=== PATIENT | male | born 1950 | race Caucasian/White ===

== ENCOUNTER → 2016-09-22 | Outpatient (CLI) | payer BC ==
[~2016-09-22] MED LIST: ADVIN25/60 INH; ALPHTAB4 PO; ALUMSUS2 PO; AMLO-114 PO; ASCO500T16 PO; ASPCH81X PO; ATOR-26 PO; CHOL100027 PO; CYAN500T PO; DABI150C PO; DICL1GEL12 EXT; FLUO40CA8 PO; GLUC10007 PO; IPRA1AER2 INH; IRBE1TAB50 PO; MCRK20 PO; METO25TA3 PO; MONT1TAB3 PO; MULT1TAB56 PO; NTRSLP4 SL; OMEG10007 PO; PANT40TA PO
[2016-09-22 14:48] LABS: ALT/SGPT 37 U/L (12-78); AST/SGOT 18 U/L (15-37); BLOOD UREA NITROGEN 14 mg/dl (7-18); BUN/CREATININE RATIO 15.7 (10-20); CALCIUM 9.3 mg/dl (8.5-10.1); CARBON DIOXIDE 28 mmol/L (21-32); CHLORIDE 108 mmol/L (98-107); CREATININE 0.91 mg/dl (0.60-1.40); GLUCOSE 90 mg/dl (70-99); POTASSIUM 3.8 mmol/L (3.5-5.1); SODIUM 143 mmol/L (136-145)
[2016-09-22 14:51] LABS: CHOLESTEROL 132 mg/dl (0-200); CHOLESTEROL/HDL RATIO 3.7; HDL CHOLESTEROL 36 mg/dl; TRIGLYCERIDES 109 mg/dl (0-150); VERY LOW DENSITY LIPOPROT CALC 22 mg/dl
== END | disposition home or self-care (01) ==
LOC: C.LAB1850 12:49
PROVIDERS: ATTEND Internal Medicine Cardiovascular Disease
DX: I25.10 Atherosclerotic heart disease of native coronary artery without angina pectoris (principal)

== ENCOUNTER 2016-10-14 01:11 | Observation (INO) | payer BC, OTHER ==
[~2016-10-14] VITALS: Ht 175.3 cm; Wt 91.0 kg
[2016-10-14] VITALS (8 sets, daily range): BP systolic 94–119; BP diastolic 55–72; PULSE 68–100; TEMP 36.4–36.6; O2SAT 91–95; Ht 175.3 cm; Wt 91.0 kg
[~2016-10-14 01:11] MED LIST changes: -ADVIN25/60 INH; -CHOL100027 PO; -CYAN500T PO; -MCRK20 PO
[2016-10-14] MEDS ORDERED: DILTIAZEM HCL 5 MG/ML 5 ML VIAL IV STA (01:38)
--- NOTE | 2016-10-14 01:41 | EMERGENCY ROOM VISIT NOTE ---
History Report prepared by Trent: Faye Lou Under the Supervision of: Dr. Flakita Templeton M.D. First contact with patient: 01:24 Chief Complaint: CARDIAC ASSESSMENT Stated Complaint: A-FIB WITH RVR Nursing Triage Summary: arrived via amb with als from [facility]. 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 staets they just switched his medicaine for cardiazem to something else. History of Present Illness The patient is a 66 year old male who presents to the Emergency Room with complaints of intermittent chest palpitations that started earlier this evening. He was brought to the ED via ALS and is accompanied by his and daughter. He also complains of slight abdominal discomfort and a feeling of bloating. He reports he was drinking coffee earlier in the day, and drank hot cocoa and ate toast this evening, then "could feel" the symptoms of indigestion begin. He notes when he can't get the indigestion under control, it seems to "push up into his chest" and "turns into a-fib". He took Aspirin at home and was given IV fluids and 20 mg of Cardizem en route, which have provided some relief. His notes his blood pressure was "all over the place" earlier this evening as well. The patient also notes he has been awake for over 24 hours. He has a history of hypertension, hyperlipidemia, COPD, atrial fibrillation and a previous NSTEMI. He notes his regular atrial fibrillation medications were recently changed from Cardizem to Metoprolol and he takes daily Pradaxa. He is a daily 1/2 pack a day smoker. He denies any acute chest pain or shortness of breath. Source of History: patient, family, spouse/significant other () Onset: earlier this evening Position: chest Timing: intermittent Modifying Factors (Relieving): ibuprofen (Aspirin), other (Cardizem, fluids) Associated Symptoms: No SOB, No chest pain Review of Systems See HPI for pertinent positives & negatives. A total of 10 systems reviewed and were otherwise negative. Past Medical & Surgical Medical Problems: (1) Anticoagulant long-term use (2) Atrial Fibrillation (3) Chr Airway Obstruct Nec (4) Hyperlipidemia Nec/Nos (5) Hypertension Nos (6) NSTEMI (non-ST elevated myocardial infarction) (7) Paroxysmal atrial fibrillation (8) Rapid atrial fibrillation (9) Unsp Gastritis & Gastroduodenitis W/O Mentn Hemorg Family History FHx: heart disease Hypertension Social History Smoking Status: Current Every Day Smoker Alcohol Use: occasionally Drug Use: none Marital Status: Housing Status: lives with family Occupation Status: employed Current/Historical Medications Scheduled Rgjmw-[id number]-Aplukxbdfbihj (Beano), 1 TAB PO AC Amlodipine (Norvasc), 10 MG PO QPM Ascorbic Acid (Ascorbic Acid), 500 MG PO QAM Aspirin (Aspirin Chewable), 81 MG PO QAM Atorvastatin (Lipitor), 80 MG PO QPM Cholecalciferol (Vitamin D 1000 Unit), 2,000 INTER.UNIT PO DAILY Cyanocobalamin (Vitamin B-12), 500 MCG PO DAILY Dabigatran Etexilate Mesylate (Pradaxa), 150 MG PO BID Fish Oil ([place]-3), 1,000 MG PO TID Fluoxetine (Prozac), 40 MG PO QAM Glucosamine Sulfate (Glucosamine), 1,000 MG PO DAILY Irbesartan (Irbesartan), 300 MG PO QAM Metoprolol Succ (Toprol Xl) (Toprol-Xl), 25 MG PO QPM Montelukast Sodium (Singulair), 10 MG PO HS Multiple Vitamins W/ Minerals (One Daily Adults 50+), 1 TAB PO QAM Pantoprazole (Protonix), 40 MG PO AMPM Scheduled PRN Aluminum/Magnesium/Simeth (Maalox Max Susp), 30 ML PO TID PRN for Indigestion Fluticasone Prop/Salmeterol (Advair Diskus 250/50 60 Dose), 1 PUFF INH BID PRN for Shortness of Breath Ipratropium-Albuterol (Combivent Respimat), 1 PUFFS INH TID PRN for Shortness of Breath Nitroglycerin (Nitrostat), 0.4 MG SL PRN PRN for Chest Pain Allergies Coded Allergies: Niacin (Verified Allergy, Unknown, FLUSHED, 10/14/16) Physical Exam Vital Signs Date Time Temp Pulse Resp B/P Pulse Ox O2 Delivery O2 Flow Rate FiO2 10/14/16 02:25 112 18 105/71 94 Room Air 10/14/16 01:52 95 18 128/81 96 Room Air 10/14/16 01:25 94 Room Air 10/14/16 01:20 36.8 107 18 92/80 94 Room Air 10/14/16 01:20 Room Air 10/14/16 01:20 108 Physical Exam Vital signs reviewed. General: Well-appearing 66 year old male, in no significant distress. HEENT: No scleral icterus, PERRLA, neck supple. Atraumatic. Cardiovascular: Tachycardic heart rate and irregular rhythm, no extra sounds. Pulmonary: Clear to auscultation bilaterally, normal work of breathing. Abdomen: Soft, nontender, nondistended, positive bowel sounds. Musculoskeletal: Atraumatic, no peripheral edema. Neurologic: Patient awake alert and oriented x 3, full strength in all 4 extremities. Cranial nerves 2 through 12 grossly intact. Skin: Warm, dry, no rash Medical Decision & Procedures ER Provider Diagnostic Interpretation: This X-Ray was reviewed and interpreted by myself as we do not have a radiologist on staff over-night. CHEST X-RAY No focal lung consolidation, no failure. Laboratory Results 10/14/16 00:34 Red Blood Count 4.96, Mean Corpuscular Volume 88.5, Mean Corpuscular Hemoglobin 31.7, Mean Corpuscular Hemoglobin Concent 35.8, Mean Platelet Volume 9.7, Neutrophils (%) (Auto) 64.3, Lymphocytes (%) (Auto) 25.5, Monocytes (%) (Auto) 7.9, Eosinophils (%) (Auto) 1.7, Basophils (%) (Auto) 0.2, Neutrophils # (Auto) 6.29, Lymphocytes # (Auto) 2.50, Monocytes # (Auto) 0.77, Eosinophils # (Auto) 0.17, Basophils # (Auto) 0.02 10/14/16 00:34 Test 10/14/16 00:34 10/14/16 01:42 White Blood Count 9.79 K/uL (4.8-10.8) Red Blood Count 4.96 M/uL (4.7-6.1) Hemoglobin 15.7 g/dL (14.0-18.0) Hematocrit 43.9 % (42-52) Mean Corpuscular Volume 88.5 fL (80-100) Mean Corpuscular Hemoglobin 31.7 pg (25-34) Mean Corpuscular Hemoglobin Concent 35.8 g/dl (32-36) Platelet Count 233 K/uL (130-400) Mean Platelet Volume 9.7 fL (7.4-10.4) Neutrophils (%) (Auto) 64.3 % Lymphocytes (%) (Auto) 25.5 % Monocytes (%) (Auto) 7.9 % Eosinophils (%) (Auto) 1.7 % Basophils (%) (Auto) 0.2 % Neutrophils # (Auto) 6.29 K/uL (1.4-6.5) Lymphocytes # (Auto) 2.50 K/uL (1.2-3.4) Monocytes # (Auto) 0.77 K/uL (0.11-0.59) Eosinophils # (Auto) 0.17 K/uL (0-0.5) Basophils # (Auto) 0.02 K/uL (0-0.2) RDW Standard Deviation 40.3 fL (36.4-46.3) RDW Coefficient of Variation 12.7 % (11.5-14.5) Immature Granulocyte % (Auto) 0.4 % Immature Granulocyte # (Auto) 0.04 K/uL (0.00-0.02) Anion Gap 11.0 mmol/L (3-11) Est Creatinine Clear Calc Drug Dose 90.8 ml/min Estimated GFR () 98.8 Estimated GFR (Non- 85.2 BUN/Creatinine Ratio 18.1 (10-20) Calcium Level 9.2 mg/dl (8.5-10.1) Magnesium Level 2.1 mg/dl (1.8-2.4) Total Bilirubin 0.4 mg/dl (0.2-1) Direct Bilirubin < 0.1 mg/dl (0-0.2) Aspartate Amino Transf (AST/SGOT) 21 U/L (15-37) Alanine Aminotransferase (ALT/SGPT) 31 U/L (12-78) Alkaline Phosphatase 127 U/L (45-117) Total Creatine Kinase 126 U/L (39-308) Creatine Kinase MB 1.3 ng/ml (0.5-3.6) Creatine Kinase MB Ratio 1.0 (0-3.0) Total Protein 7.4 gm/dl (6.4-8.2) Albumin 3.8 gm/dl (3.4-5.0) Bedside Troponin I 0.020 ng/ml (0-0.045) Laboratory results per my review. Medications Administered Medications (Trade) Dose Ordered Sig/Bhaskar Route Start Time Stop Time Status Last Admin Dose Admin Diltiazem HCl (Cardizem Inj) 10 mg NOW STAT IV 10/14/16 01:38 10/14/16 01:40 DC 10/14/16 01:48 10 MG Potassium Chloride 40 meq 40 meq NOW STAT PO 10/14/16 02:10 10/14/16 02:11 DC 10/14/16 02:24 40 MEQ Potassium Chloride/Sodium Chloride (09/22 Nss + 20meq KCl 1000ml) 1,000 ml @ 125 mls/hr Q8H IV 10/14/16 02:45 10/15/16 02:44 10/14/16 04:27 125 MLS/HR Metoprolol Succinate (Toprol Xl Tab) 25 mg 0246 ONCE PO 10/14/16 02:46 10/14/16 02:59 DC 10/14/16 03:59 25 MG ECG Indication: palpitations Rate (beats per minute): 112 Rhythm: atrial fibrillation Findings: no acute ischemic change, left axis deviation, other (likely previous anterior infarct) ED Course 0135: Past medical records reviewed. The patient was evaluated in room B2. A complete history and physical examination was performed. 0138: Cardizen 10 mg IV. 0200: I reevaluated the patient. He is resting comfortably. 0210: Potassium Chloride 40 meq PO. 0212: I discussed the patients results and my recommendation that he remain in the hospital for further evaluation and management. He and his family verbalized complete understanding and agreement. 0230: I discussed the patient's case with Dr. Sharif, [facility] Hospitalist. The patient will be further evaluated. Medical Decision The differential diagnoses considered include premature contractions, electrolyte abnormality, cardiac dysrhythmia, thyroid dysfunction, pulmonary embolism, infection, gastrointestinal, as well as others were entertained. This patient was evaluated and appeared to be in no distress. 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 He is found to be in a fairly controlled atrial fibrillation. The patient did receive 20 mg of IV Cardizem in route for rapid atrial fibrillation. The patient was hydrated with normal saline solution for a short period of hypotension thereafter. Laboratory work is fairly unrevealing. Cardiac enzymes are negative. Patient' s potassium is found to be 3.1. He was given 40 mEq of oral potassium. Patient will be evaluated by the hospitalist service for further management. Consults Time Called: 210 Consulting Physician: Dr. Sharfi, [facility] Hospitalist Returned Call: 023 I discussed the patient's case with Dr. Sharif, [facility] Hospitalist. The patient will be further evaluated. Impression Primary Impression: Rapid atrial fibrillation Additional Impressions: Hypotension Precordial chest pain Scribe Attestation The scribe's documentation has been prepared under my direction and personally reviewed by me in its entirety. I confirm that the note above accurately reflects all work, treatment, procedures, and medical decision making performed by me. Departure Information Dispostion Being Evaluated By Hospitalist Referrals Suzanne Garcia D.O. (PCP) Patient Instructions My [facility] Problem Qualifiers
[2016-10-14 01:48] LABS: BASO % 0.2 %; BASO ABS # 0.02 K/uL (0-0.2); COMPLETE YES; EOS % 1.7 %; HEMATOCRIT 43.9 % (42-52); IG% 0.4 %; LYMPH % 25.5 %; MEAN CELL VOLUME 88.5 fL (80-100); MEAN CORPUSCULAR HEMOGLOBIN 31.7 pg (25-34); MEAN CORPUSCULAR HGB CONC 35.8 g/dl (32-36); MEAN PLATELET VOLUME 9.7 fL (7.4-10.4); MONO % 7.9 %; NEUT % 64.3 %; PLATELET COUNT 233 K/uL (130-400); RED BLOOD COUNT 4.96 M/uL (4.7-6.1); WHITE BLOOD COUNT 9.79 K/uL (4.8-10.8)
[2016-10-14 02:05] LABS: ALT/SGPT 31 U/L (12-78); AST/SGOT 21 U/L (15-37); BLOOD UREA NITROGEN 17 mg/dl (7-18); BUN/CREATININE RATIO 18.1 (10-20); CALCIUM 9.2 mg/dl (8.5-10.1); CARBON DIOXIDE 27 mmol/L (21-32); CHLORIDE 107 mmol/L (98-107); CREATININE 0.93 mg/dl (0.60-1.40); GLUCOSE 117 mg/dl (70-99); MAGNESIUM 2.1 mg/dl (1.8-2.4); POTASSIUM 3.1 mmol/L (3.5-5.1); SODIUM 145 mmol/L (136-145)
[2016-10-14 02:10] LABS: ALKALINE PHOSPHATASE 127 U/L (45-117)
[2016-10-14] MEDS ORDERED: POTASSIUM CHLORIDE 10 MEQ TABCR PO STA (02:10)
[2016-10-14] MEDS ORDERED: POTASSIUM CHLORIDE 20 MEQ TABCR PO ONE (02:38)
[2016-10-14] MEDS ORDERED: CHOL100027 PO (02:40)
[2016-10-14] MEDS ORDERED: ADVIN25/60 INH (02:40)
[2016-10-14] MEDS ORDERED: CYAN500T PO (02:40)
[2016-10-14] MEDS ORDERED: ALUMINUM/MAGNESIUM/SIMETH (MAALOX MAX) 30 ML UDC PO PRN (02:45)
[2016-10-14] MEDS ORDERED: NITROGLYCERIN 0.4 MG SL PER TAB CHARGE SL PRN (02:45)
[2016-10-14] MEDS: NITROGLYCERIN OINT 2% 1GM PACKET EXT SCH ×3 (02:45→14:45)
[2016-10-14] MEDS ORDERED: ONDANSETRON INJ 2 MG/ML 2 ML VIAL IV PRN (02:45)
[2016-10-14] MEDS ORDERED: METOPROLOL SUCC 50MG EXT REL TAB PO ONE (02:46)
[2016-10-14] MEDS ORDERED: METOPROLOL TARTRATE 1 MG/ML VIAL IV PRN (03:00)
--- NOTE | 2016-10-14 03:01 | History and Physical ---
History & Physical Date & Time of Service: Oct 14, 2016 at 02:47 Chief Complaint: A-Fib With Rvr Primary Care Physician: Suzanne Garcia D.O. History of Present Illness Source: patient, family Mr Bonilla is a 66 yo M with a fib, previous NSTEMI, CAD, and GERD who presents with tachycardia. 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 Earlier today he was drinking hot chocolate and had some crackers that were "chicken in a biscuit" flavor which he hadn't had before, and ended up getting severe bloating in his belly. He felt this rise up to his chest and push him to atrial fibrillation. He reports that is his usual trigger for A Fib. He denied any chest pain or shortness of breath at the time. 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 He reports about a month ago his Plavix was stopped and he remains on Pradaxa for anticoagultaion. He was recently switched from diltiazem to metoprolol succinate 25mg daily. He also switched from losartan to irbesartan. Currently, he feels well. Denies any new concerns. Past Medical/Surgical History Medical Problems: (1) Anticoagulant long-term use Status: Chronic (2) Atrial Fibrillation Status: Chronic (3) Chr Airway Obstruct Nec Status: Chronic (4) Hyperlipidemia Nec/Nos Status: Chronic (5) Hypertension Nos Status: Chronic (6) NSTEMI (non-ST elevated myocardial infarction) Status: Resolved (7) Unsp Gastritis & Gastroduodenitis W/O Mentn Hemorg Status: Chronic Family History FHx: heart disease Hypertension Social History Smoking Status: Current Every Day Smoker (1/2 pack per day) Drug Use: none Marital Status: Housing status: lives with family Occupational Status: employed Immunizations History of Influenza Vaccine: No Influenza Vaccine Date: Aug 02, 2013 History of Tetanus Vaccine?: No History of Pneumococcal: Yes Pneumococcal Date: Aug 01, 2010 History of Hepatitis B Vaccine: No Multi-Drug Resistant Organisms History of MDRO: No Allergies Coded Allergies: Niacin (Verified Allergy, Unknown, FLUSHED, 10/14/16) Home Medications Scheduled Psrve-O-Eteydkagxxiuo (Beano), 1 TAB PO AC Amlodipine (Norvasc), 10 MG PO QPM Ascorbic Acid (Ascorbic Acid), 500 MG PO QAM Aspirin (Aspirin Chewable), 81 MG PO QAM Atorvastatin (Lipitor), 80 MG PO QPM Cholecalciferol (Vitamin D 1000 Unit), 2,000 INTER.UNIT PO DAILY Cyanocobalamin (Vitamin B-12), 500 MCG PO DAILY Dabigatran Etexilate Mesylate (Pradaxa), 150 MG PO BID Fish Oil ([place]-3), 1,000 MG PO TID Fluoxetine (Prozac), 40 MG PO QAM Glucosamine Sulfate (Glucosamine), 1,000 MG PO DAILY Irbesartan (Irbesartan), 300 MG PO QAM Metoprolol Succ (Toprol Xl) (Toprol-Xl), 25 MG PO QPM Montelukast Sodium (Singulair), 10 MG PO HS Multiple Vitamins W/ Minerals (One Daily Adults 50+), 1 TAB PO QAM Pantoprazole (Protonix), 40 MG PO AMPM Scheduled PRN Aluminum/Magnesium/Simeth (Maalox Max Susp), 30 ML PO TID PRN for Indigestion Fluticasone Prop/Salmeterol (Advair Diskus 250/50 60 Dose), 1 PUFF INH BID PRN for Shortness of Breath Ipratropium-Albuterol (Combivent Respimat), 1 PUFFS INH TID PRN for Shortness of Breath Nitroglycerin (Nitrostat), 0.4 MG SL PRN PRN for Chest Pain Review of Systems See HPI for pertinent positives & negatives. A total of 10 systems reviewed and were otherwise negative. Physical Exam Vital Signs Date Time Temp Pulse Resp B/P Pulse Ox O2 Delivery O2 Flow Rate FiO2 10/14/16 02:25 112 18 105/71 94 Room Air 10/14/16 01:52 95 18 128/81 96 Room Air 10/14/16 01:25 94 Room Air 10/14/16 01:20 36.8 107 18 92/80 94 Room Air 10/14/16 01:20 Room Air 10/14/16 01:20 108 General Appearance: WD/WN, no apparent distress Head: normocephalic Eyes: normal inspection ENT: hearing grossly normal Neck: supple, no JVD Respiratory/Chest: lungs clear, normal breath sounds, no respiratory distress, no accessory muscle use Cardiovascular: no murmur, normal peripheral pulses, + irregularly irregular Abdomen/GI: normal bowel sounds, non tender, soft, + distended Back: no CVA tenderness, no muscle spasm Extremities/Musculoskelatal: no calf tenderness, no pedal edema Neurologic/Psych: alert, normal mood/affect, oriented x 3 Skin: warm/dry, no rash Diagnostics Laboratory Results Results Past 24 Hours Test 10/14/16 00:34 10/14/16 01:42 Range/Units White Blood Count 9.79 4.8-10.8 K/uL Red Blood Count 4.96 4.7-6.1 M/uL Hemoglobin 15.7 14.0-18.0 g/dL Hematocrit 43.9 42-52 % Mean Corpuscular Volume 88.5 80-100 fL Mean Corpuscular Hemoglobin 31.7 25-34 pg Mean Corpuscular Hemoglobin Concent 35.8 32-36 g/dl Platelet Count 233 130-400 K/uL Mean Platelet Volume 9.7 7.4-10.4 fL Neutrophils (%) (Auto) 64.3 % Lymphocytes (%) (Auto) 25.5 % Monocytes (%) (Auto) 7.9 % Eosinophils (%) (Auto) 1.7 % Basophils (%) (Auto) 0.2 % Neutrophils # (Auto) 6.29 1.4-6.5 K/uL Lymphocytes # (Auto) 2.50 1.2-3.4 K/uL Monocytes # (Auto) 0.77 0.11-0.59 K/uL Eosinophils # (Auto) 0.17 0-0.5 K/uL Basophils # (Auto) 0.02 0-0.2 K/uL RDW Standard Deviation 40.3 36.4-46.3 fL RDW Coefficient of Variation 12.7 11.5-14.5 % Immature Granulocyte % (Auto) 0.4 % Immature Granulocyte # (Auto) 0.04 0.00-0.02 K/uL Sodium Level 145 136-145 mmol/L Potassium Level 3.1 3.5-5.1 mmol/L Chloride Level 107 98-107 mmol/L Carbon Dioxide Level 27 21-32 mmol/L Anion Gap 11.0 3-11 mmol/L Blood Urea Nitrogen 17 7-18 mg/dl Creatinine 0.93 0.60-1.40 mg/dl Est Creatinine Clear Calc Drug Dose 90.8 ml/min Estimated GFR () 98.8 Estimated GFR (Non- 85.2 BUN/Creatinine Ratio 18.1 10-20 Random Glucose 117 70-99 mg/dl Calcium Level 9.2 8.5-10.1 mg/dl Magnesium Level 2.1 1.8-2.4 mg/dl Total Bilirubin 0.4 0.2-1 mg/dl Direct Bilirubin < 0.1 0-0.2 mg/dl Aspartate Amino Transf (AST/SGOT) 21 15-37 U/L Alanine Aminotransferase (ALT/SGPT) 31 12-78 U/L Alkaline Phosphatase 127 45-117 U/L Total Creatine Kinase 126 39-308 U/L Creatine Kinase MB 1.3 0.5-3.6 ng/ml Creatine Kinase MB Ratio 1.0 0-3.0 Total Protein 7.4 6.4-8.2 gm/dl Albumin 3.8 3.4-5.0 gm/dl Bedside Troponin I 0.020 0-0.045 ng/ml CXR normal EKG A fib with RVR, no ST elevation Impression Assessment and Plan 66 yo M with known paroxysmal atrial fibrillation, on anticoagulation, who presents in a fib with RVR - likely contributed to by multiple factors, including: hypokalemia, stress, caffeine use, sleep deprivation, poor timing/ compliance with Toprol XL, gastritis, poor diet. Plan: A fib with RVR - Toprol 25mg BID starting now. Pt is likely not covering a 24 hour period with his job and irregular timing of med administration. - Lopressor IV 5mg q4h for HR > 120 - Trend cardiac enzymes - Most recent echo in 05/06, will not repeat now. If stays here beyond tomorrow would consider consulting Dr Boyer. Hypokalemia - K rider x 2 - 1/2NS with 20mmoL K+ - 40mEq KCL tab - Normal magnesium - Hold PPI for now, switch to Famotidine 25mg BID COPD - Flovent BID - Holding home inhalers as salmeterol may contribute to tachycardia Gastritis/Gas - Simethicone 80mg q6h VTE - Pradaxa Code status: FULL Dispo: Tele VTE Prophylaxis VTE Risk Assessment Done? Y/N: Yes Risk Level: Moderate Resident Tracking Resident Involvement: Resident Care Provided Care Provided: Adult Hospital Medicine Assessment and Plan Attending Addendum: I have seen and examined this patient, have directed their medical care, have supervised the resident, and agree with the H&P as noted above. History of Present Illness: The patient is a 66-year-old male presents emergency department with palpitations that he recognized as recurrent atrial fibrillation, with his last episode being some time in February 2016. 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 In addition he had had coffee drinker earlier today and then hot chocolate and toast. When he ate chicken in a biscuit, he began to develop indigestion and bloating, and reports that this is active as a trigger in the past for atrial fibrillation. He had been seen by his slab off mill tender Dr. Boyer and PCP Dr. Garcia about one month ago, and at that time, his anticoagulation was changed from Plavix and Pradaxa to Pradaxa alone. He also reports being changed from diltiazem to metoprolol succinate 25 mg daily and from losartan to irbesartan. He did receive diltiazem 10 mg IV, and IV fluid resuscitation, and feels better at this time. He has no chest pain or shortness of breath, but still does note abdominal bloating and gas. He did have a brief interval of nausea when the bloating was at its worse. Review of Systems: The patient denies chest pain, cough, lower extremity swelling, vision change, hearing change, sore throat, fevers, chills, sweats, weight change, fatigue, vomiting, abdominal pain, pelvic pain, blood in urine or stool, dysuria, urinary frequency or urgency, lightheadedness, dizziness, headache, memory loss , rash, abnormal bruising or bleeding, imbalance, focal or generalized weakness , numbness or tingling in arms or legs, arthralgias or myalgias, back or neck pain, night sweats, or allergy symptoms. The review of systems is otherwise negative other than for that already noted above, and at least 10 systems have been reviewed. Past Medical History: Long-term anticoagulant use. Atrial fibrillation. COPD. Hyperlipidemia. Hypertension. History of Non-STEMI. Unspecified gastritis and gastroduodenitis Without Hemorrhage. Depression Osteoarthritis Family History: Heart disease Hypertension Social History: Current every day smoker (one half pack per day). 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 Home Medications: Alpha D galactosidase 1 tablet by mouth before meals. Amlodipine 10 mg by mouth every afternoon. Ascorbic acid 500 mg by mouth every morning. Aspirin chewable 81 mg by mouth every morning. Atorvastatin 80 mg by mouth every evening. Cholecalciferol 2000 does not units by mouth daily. Cyanocobalamin 500 g by mouth daily. Pradaxa 150 mg by mouth twice a day. Fish oil 1000 mg by mouth 3 times a day. Fluoxetine 40 mg by mouth every morning. Glucosamine sulfate 1000 mg by mouth daily. Irbesartan 300 mg by mouth every morning. Metoprolol succinate 25 mg by mouth every afternoon. Montelukast sodium 10 mg by mouth at bedtime. Multivitamin with minerals 1 tablet by mouth every morning. Pantoprazole 40 mg by mouth twice a day. Maalox maximum suspension 30 mils by mouth 3 times a day when necessary. Advair Diskus 250/50 one inhalation twice a day when necessary shortness of breath. Combivent Respimat 1 puff inhaled 3 times a day when necessary shortness of breath. Nitroglycerin sublingual 0.4 mg when necessary chest next Physical Examination: The patient is awake, well-developed and adequately nourished, alert and oriented 3, normocephalic and atraumatic, sitting upright in bed and in no acute distress. HEENT--PERRL, EOMI, mucous membranes moist, and oropharynx normal. Neck--supple, no JVD or bruits, thyroid normal, trachea midline, no adenopathy. Heart--irregularly irregular, no extra beats, no murmurs, rubs or gallops. Lungs--diminished at the bases bilaterally, no respiratory distress, no accessory muscle use. Abdomen--normal bowel sounds and soft, nontender and mildly distended and tympanitic, no hernias or masses, no organomegaly. Extremities--no cyanosis, clubbing or edema. There are good distal pulses b/l. Dermatologic--normal skin turgor, normal color, warm and dry, no abnormal lymph nodes, no rash. Neurologic--cranial nerves II through XII grossly intact, motor and sensory examination normal. Rheumatologic--normal range of motion, nontender, muscles and joints. Psychiatric--normal affect. Imaging Studies: EKG shows atrial fibrillation at rate of 112 bpm, left axis deviation, no change compared to 05/23/2016. Next Chest x-ray shows no acute findings. Assessment and Plan: CAD/hypertension/chronic atrial fibrillation/long-term anticoagulant use--the patient has presented to the emergency department with recurrence of atrial fibrillation with rapid ventricular response. He'll be admitted to the telemetry unit, for serial cardiac enzymes, and cardiac rhythm monitoring. He just recently had an echocardiogram done a few months ago and does not need to be repeated. Triggers for this event include hypokalemia, fatigue secondary to long work hours, caffeinated products, food ingestion and recurrence of gastritis, and also variable time that he takes his metoprolol succinate due to variable work schedule. We'll increase his metoprolol succinate 25 mg by mouth every evening to 25 mg by mouth twice a day. We will have available Lopressor 5 mg IV every 4 hours when necessary heart rate greater than 110. Continue Pradaxa for stroke prophylaxis. Hypokalemia--potassium level upon admission labs was 3.1. He will get potassium chloride 40 mEq by mouth now, and placed on half-normal saline with potassium chloride 20 mEq 100 mils per hour. Gastritis/duodenitis--change pantoprazole 40 mg by mouth twice a day to famotidine 20 mg by mouth twice a day. COPD-- hold Advair Diskus 250/50 twice a day when necessary, and place on Flovent 220 g 2 puffs twice a day. Gas/abdominal distention--increased simethicone 80 mg by mouth every 6 hours while awake.
[2016-10-14] MEDS ORDERED: FAMOTIDINE 20 MG TAB PO ONE (03:12)
[2016-10-14] MEDS: POTASSIUM CHLR 10 MEQ / WTR 10 MEQ in PREMIXED WATER 100 ML IV SCH ×2 (03:59→05:28)
[2016-10-14] MEDS: SODIUM CHLOR 0.45% + 20MEQ KCL 1,000 ML IV SCH ×2 (04:27→12:01)
[2016-10-14] MEDS ORDERED: IV FLUIDS COMPLETED PRN (05:15)
[2016-10-14] MEDS: SIMETHICONE 80 MG CHEW PO SCH ×2 (05:35→12:01)
--- NOTE | 2016-10-14 07:32 | DIAGNOSTIC IMAGING REPORT ---
CHEST ONE VIEW PORTABLE CLINICAL HISTORY: chest pain, A fib COMPARISON STUDY: April 22, 2016 FINDINGS: The heart is the upper limits of normal in size. There is been mild improvement in the previously identified mild interstitial thickening/edema. There is no lobar consolidation. There are no pleural effusions. There is a nonspecific 9 mm opacity at the right lung base, possibly representing a nipple shadow or summation.[ IMPRESSION: 1. Mild improvement in the previous described interstitial thickening/edema 2. No evidence of focal pulmonary consolidation 3. Nonspecific 9 mm opacity at the right lung base, possibly representing a nipple shadow or summation. Electronically signed by: Samson Garces M.D. 10/14/2016 7:30 AM Dictated Date/Time: 10/14/2016 7:28 AM
[2016-10-14 08:32] LABS: CKMB/CK RATIO 1.8 (0-3.0)
[2016-10-14] MEDS ORDERED: DABIGATRAN ELEXILATE 75 MG CAP PO SCH (09:00)
[2016-10-14] MEDS ORDERED: FLUOXETINE HCL 20 MG CAP PO SCH (09:00)
[2016-10-14] MEDS ORDERED: IRBESARTAN 150 MG TAB PO SCH ×2 (09:00)
[2016-10-14] MEDS ORDERED: NON-FORMULARY MEDICATION (Irbesartan 300 MG) PO SCH (09:00)
[2016-10-14] MEDS ORDERED: POTASSIUM CHLORIDE 20 MEQ TABCR PO SCH (09:00)
[2016-10-14] MEDS ORDERED: METOPROLOL SUCC 25MG EXT REL TAB PO SCH ×2 (09:00→21:00)
[2016-10-14] MEDS ORDERED: ASCORBIC ACID 500 MG TAB PO SCH (09:00)
[2016-10-14] MEDS ORDERED: FAMOTIDINE 20 MG TAB PO SCH (09:00)
[2016-10-14 14:25] LABS: CKMB/CK RATIO 2.1 (0-3.0)
[2016-10-14] MEDS ORDERED: NURSING VERBAL MED ORDER ONE ×2 (14:45→15:00)
[2016-10-14] MEDS ORDERED: MCRK20 PO ×2 (15:45→16:59)
--- NOTE | 2016-10-14 16:03 | Discharge Instructions ---
Discharge Instructions Admission Reason for Admission: Chest Pain, Rapid A-Fib Discharge Discharge Diagnosis / Problem: Atrial fibrillation with rapid ventricular rate Discharge Goals Goal(s): Therapeutic intervention Activity Recommendations Activity Limitations: resume your previous activity Instructions / Follow-Up Instructions / Follow-Up You were seen in hospital for palpitations that you recognized to be atrial fibrillation. Your EKG confirmed this diagnosis. It is possible that there are multiple contributing factors causing your symptoms, which may be related to: low blood potassium levels, stress, caffeine use, sleep deprivation, inconsistent timing with metoprolol dosing, gastritis, poor diet. The fact that your cardiac enzyme troponin was within normal limits, was reassuring. However, on admission your potassium levels were very low and so you were given potassium supplements. In addition, upon coming in, we increased your dose of metoprolol from once daily to twice a day, and we continued you Pradaxa anticoagulation. Your heart rate decreased and the following day, you reverted back to sinus rhythm. However, it was noted that your blood pressure was on the low side and so we held your irbesartan. We also found that the increased metoprolol dose made your heart rate very slow. On discharge: - Resume your regular dose of metoprolol succinate 25mg once daily and Pradaxa 150mg BID. - Take three days of potassium supplements 20mEq twice daily. - Also, please discontinue your irbesartan for the time being. - By Thursday or Thursday, please follow up with Dr Boyer or Dr. Garcia to repeat your kidney function tests and test your potassium levels and to re-assess the need to restart irbesartan. Please seek medical help immediately if you have return of symptoms, chest pain , trouble breathing, lightheadedness, fainting/falls, or if any other concerns arise. Current Hospital Diet Patient's current hospital diet: AHA Diet (Heart Healthy) Discharge Diet Recommended Diet: AHA Diet (Heart Healthy) Pending Studies Studies pending at discharge: no Laboratory Results Lipid Panel Test 09/22/16 12:55 Range/Units Triglycerides Level 109 0-150 mg/dl Cholesterol Level 132 0-200 mg/dl HDL Cholesterol 36 mg/dl LDL Cholesterol Direct 95 mg/dl Cholesterol/HDL Ratio 3.7 LDL Cholesterol, Calculated mg/dl Medical Emergencies . Who to Call and When: Medical Emergencies: If at any time you feel your situation is an emergency, please call 911 immediately. . Non-Emergent Contact Non-Emergency issues call your: Primary Care Provider . . "Provider Documentation" section prepared by Ines Ascencio. VTE Core Measure Inpt VTE Proph given/why not?: Other Anticoagulation
--- NOTE | 2016-10-14 16:37 | Discharge Summary ---
Discharge Summary Admission Date: Oct 14, 2016 at 02:46 Discharge Date: Oct 14, 2016 Discharge Disposition: Home Principal Diagnosis: Atrial fibrillation with rapid ventricular rate Immunizations: Have You Had Influenza Vaccine: No Influenza Vaccine Date: Aug 02, 2013 History of Tetanus Vaccine?: No History of Pneumococcal: Yes Pneumococcal Date: Aug 01, 2010 History of Hepatitis B Vaccine: No (Alka. Ascencio MD) Medication Reconciliation New Medications: Potassium Chloride (Klor-Con M20) 20 Meq Tabcr 40 MEQ PO BID for 3 Days Continued Medications: Gbrcr-W-Jclcytqqmzewo (Beano) 1 Tab Tab 1 TAB PO AC Aluminum/Magnesium/Simeth (Maalox Max Susp) Susp 30 ML PO TID PRN for Indigestion Amlodipine (Norvasc) 10 Mg Tab 10 MG PO QPM Ascorbic Acid (Ascorbic Acid) 500 Mg Tab 500 MG PO QAM Aspirin (Aspirin Chewable) 81 Mg Chew 81 MG PO QAM Atorvastatin (Lipitor) 80 Mg Tab 80 MG PO QPM Cholecalciferol (Vitamin D 1000 Unit) 1,000 Unit Cap 2000 INTER.UNIT PO DAILY, CAP Cyanocobalamin (Vitamin B-12) 500 Mcg Tab 500 MCG PO DAILY, TAB Dabigatran Etexilate Mesylate (Pradaxa) 150 Mg Cap 150 MG PO BID, 3 Refills Fish Oil ([place]-3) 1 Ea Cap 1000 MG PO TID Fluoxetine (Prozac) 40 Mg Cap 40 MG PO QAM Fluticasone Prop/Salmeterol (Advair Diskus 250/50 60 Dose) 1 Ea Aerp 1 PUFF INH BID PRN for Shortness of Breath Glucosamine Sulfate (Glucosamine) 1,000 Mg Tab 1000 MG PO DAILY Ipratropium-Albuterol (Combivent Respimat) 1 Aer Aer 1 PUFFS INH TID PRN for Shortness of Breath Irbesartan (Irbesartan) 300 Mg Tab 300 MG PO QAM, 3 Refills Metoprolol Succ (Toprol Xl) (Toprol-Xl) 25 Mg Tabcr 25 MG PO QPM Montelukast Sodium (Singulair) 10 Mg Tab 10 MG PO HS Multiple Vitamins W/ Minerals (One Daily Adults 50+) 1 Tab Tab 1 TAB PO QAM Nitroglycerin (Nitrostat) 0.4 Mg/1 Tab Subl 0.4 MG SL PRN PRN for Chest Pain, #30 Pantoprazole (Protonix) 40 Mg Tab 40 MG PO AMPM Discharge Exam Patient lying comfortably in bed. Says he does not feel like he is in atrial fibrillation currently. Denies CP, palpitations, heart racing. No dyspnea on rest or exertion. No current symptoms of indigestion, nausea, vomiting. Denies dizziness, lightheadedness, syncope or presyncopal episodes. No leg swelling, calf tenderness, recent weight changes. No fevers, chills nights sweats. Mentions that he did have a cold last week Is a daily smoker, but does not use home oxygen, CPAP, BIPAP Review of Systems: Constitutional: No chills, No fever, No sweats Respiratory: No cough, No dyspnea at rest, No dyspnea on exertion, No wheezing Cardiovascular: No PND, No chest pain, No edema, No orthopnea, No palpitations Abdomen: No constipation, No diarrhea, No nausea, No pain, No vomiting Genitourinary - Male: No dysuria Physical Exam: General Appearance: WD/WN, no apparent distress Neck: supple Respiratory/Chest: chest non-tender, lungs clear, normal breath sounds, no respiratory distress Cardiovascular: regular rate, rhythm, no edema, no murmur, normal peripheral pulses Abdomen / GI: normal bowel sounds, non tender, soft, no organomegaly Extremities: no calf tenderness, no pedal edema Neurologic/Psychiatric: alert, normal mood/affect, oriented x 3 Skin: normal color, warm/dry, no rash (Alka. Ascencio MD) Hospital Course 66 year old male with history of hypertension, hyperlipidemia, COPD, atrial fibrillation, GERD and a previous NSTEMI presents to hospital with palpitations that he recognized as recurrent atrial fibrillation. For atrial fibrillation, patient is on metoprolol succinate 25 mg daily and Pradexa 150mg BID. A fib with RVR - Metoprolol succinate 25mg increased from daily to BID - patient is likely not covering a 24 hour period with his job and irregular timing of med administration. - Metoprolol tartrate IV 5mg q4h for HR > 120 - Continued home dose of Pradaxa 150mg BID - Cardiac enzymes, troponin 1st set 0.020, 2nd set <0.015, 3rd set <0.015 - Most recent echo in 05/06, thus was not repeated. - Patient converted to sinus rhythm, associated with bradycardia - Patient discharged on home dose of Metoprolol succinate 25mg daily and Pradaxa 150mg BID Hypokalemia - K rider x 2 given in ED - supplemented with IVF: 1/2NS with 20mmoL K+ - Given 40mEq KCL tab - Normal magnesium - Patient says he's not on potassium supplements at home - Patient prescribed 3 days of potassium chloride tablets 20mEq BID - Advised to follow up with PCP to recheck BMP Blood Pressure - Patient states recent switch from losartan to irbesartan - He was noted to be hypotensive this morning - checked supine/sitting/ standing. Claims normal SBP is 120 to 140s - Irbesartan held this morning - Advised to hold medication in view of hypotension, and follow up with PCP or hourly caregiver to re-assess antihypertensives COPD - Given Flovent BID - Held home inhalers as salmeterol may contribute to tachycardia - Can resume regular inhalers at home Gastritis/Gas - Simethicone 80mg q6h VTE - Pradaxa Dispo - Admitted to telemetry - Code status: FULL - Safe for discharge Total Time Spent: Less than 30 minutes This includes examination of the patient, discharge planning, medication reconciliation, and communication with other providers. (Alka. Ascencio MD) Resident Physician Supervision Note: I interviewed and examined the patient. Discussed with Dr. Ascencio and agree with findings and plan as documented in the note. Any exceptions or clarifications are listed here: None Documented By: Ventura Carpenter no further palpitations. no lightheaded/dizzy. wants to go home. vitals noted - converted to NSR but rates ~90-110 through the night even when in afib nad, breathing unlabored. no pallor afib - RVR quickly improved - now converted to NSR. replace K, f/u PCP later this week, BMP end of this week. because of slight bradycardia when converted, will hold off on continuing increased dosing of metoprolol stable for home Total Time Spent: Less than 30 minutes (Ventura Carpenter, D.O.) Discharge Instructions Please refer to the electronic Patient Visit Report (Discharge Instructions) for additional information. (Alka. Ascencio MD) Additional Copies To Eren Boyer DO; Suzanne Garcia D.O.
[2016-10-14] MEDS ORDERED: ATORVASTATIN 20 MG TAB PO SCH (21:00)
[2016-10-14] MEDS ORDERED: MONTELUKAST SOD 10 MG TAB PO SCH (21:00)
[2016-10-14] MEDS ORDERED: AMLODIPINE BESYLATE 5 MG TAB PO SCH (21:00)
== END 2016-10-14 19:20 | disposition home or self-care (01) ==
LOC: ENRESERVTM → ENRESERVDT → EDBD 01:11 → C.EDB 01:14 → C.MED 02:46
PROVIDERS: ADMIT Hospitalist; ATTEND Family Medicine
DX: I48.0 Paroxysmal atrial fibrillation (principal); E87.6 Hypokalemia; I95.9 Hypotension, unspecified; K29.70 Gastritis, unspecified, without bleeding; I10 Essential (primary) hypertension; J44.9 Chronic obstructive pulmonary disease, unspecified; I25.2 Old myocardial infarction; E78.5 Hyperlipidemia, unspecified; K21.9 Gastro-esophageal reflux disease without esophagitis; F32.9 Major depressive disorder, single episode, unspecified; F17.200 Nicotine dependence, unspecified, uncomplicated; Z79.899 Other long term (current) drug therapy; Z79.01 Long term (current) use of anticoagulants; Z79.82 Long term (current) use of aspirin; Z82.49 Family history of ischemic heart disease and other diseases of the circulatory system

== ENCOUNTER → 2016-12-19 | Outpatient (CLI) | payer BC ==
[~2016-12-19] MED LIST changes: +ADVIN25/60 INH; +CHOL100027 PO; +CYAN500T PO; -DICL1GEL12 EXT; +MCRK20 PO
--- NOTE | 2016-12-20 06:15 | PAP/PSG TECHNICIAN REPORT ---
[facility] Owner Spa Director Polysomnogram Report Study name: None Report date: 12/20/2016 Study date: 12/19/2016 Referring Physician: DR. RICO GUNDERSON Name: JOE SANCHEZ Interpreting Physician: Fili Preston D.O. Date of : 1950 Owner Spa Director: Nima Vargas RPSGT. Sex: Male Age: 66 StudyType: PSG Weight: 215 lbs Height: 66 years, Height 5' 10" BMI: 30.85 Medications: NONE LISTED Patient History PATIENT HAD A SLEEP STUDY DONE 6 YEARS AND WAS POSITIVE FOR GENIE. HE TRIED CPAP BUT WAS NOT ABLE TO TOLERATE IT. 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 HE IS HERE TODAY FOR AN EVALUATION OF GENIE. ESS = 3 RM 7 Parameters Monitored NPSG: E1-M2, E2-M1, Fp1-M2, Fp2-M1, F3-M2, F4-M2, F4-M1, C3-M2, C4-M2, C4-M1, O1-M2, O2-M2, O2-M1, T3-M2, T4-M1, P3-M2, P4-M1, CHIN1, CHIN2, HR, EKG, Legs, PFLOW, SNOR, FLOW, CFLOW, Tidal Volume, THOR, ABDO, SpO2, PLTH, CPRESS, ETCO2 Wave, ETCO2, pH Sleep Architecture Sleep Stages Time at Lights Off 9:40:09 PM STAGES Time (min.) TST (%) Time at Lights On 5:53:09 AM Wake 91.5 -- Total Recording Time (TRT) 493.50 min. N1 21.5 5 Total Sleep Period (TSP) 474.0 min. N2 245.0 61 Total Sleep Time (TST) 401.5min. N3 52.5 13 Awake Time 91.5 min. REM 82.5 21 Wake after Sleep Onset 72.5 min. Sleep Efficiency (SE) 81 % Sleep Onset Latency (TORO) 19.0 min. Number of Stage 1 Shifts None Awakenings 21 Stage Changes 86 Number of REM periods 6 REM 82.5 21 REM Latency 137.0 min. NREM 319.0 79 Body Position Analysis Supine Right Left Side Prone Vertical Total Sleep Time (min.) 2.2 296.5 105.0 401.50 0.0 0.0 Total Sleep Time (%) 0% 74% 26% 100 0% N/A% Total Sleep Time REM (min.) 0.0 33.0 49.5 None 0.0 0.0 Total Sleep Time NREM (min.) 0.0 263.5 55.5 None 0.0 0.0 Intermittent Wake (min.) 2.2 49.1 40.1 None 0.0 0.0 Total Sleep Period (%) 0% None None None None None Arousals Myoclonus (PLM) * Events Count Index Events Count Index Spontaneous 18 3 Events Awake (PLMW) 85 55.7 Respiratory 5 0.7 Events Asleep w/ Arousal (PLMA) 51 7.6 PLM 50 8 Events Asleep w/o Arousal (PLMS) 396 59.2 Snoring 27 4 Total Asleep 447 66.8 Total 100 15 Total 532 65 Respiratory Analysis * CA OA MA CH H RERA Total Count 0 1 0 0 65 0 66 Index 0.0 0.1 0.0 0 9.7 0 9.9 Mean Duration 0.0 17.9 0.0 0.00 20.7 0.0 20.7 Longest Duration 0.0 17.9 0.0 0.00 0.0 0.0 59.1 Respiratory Event Summary Total Supine ~Supine Right Left Prone REM NREM Apneas Count 1 N/A 1 0 1 N/A 1 0 Index 0.1 N/A 0 0.0 0.6 N/A 1 0 Hypopneas (4% Desat) Count 65 N/A 65 26 39 N/A 56 9 Index 9.7 N/A 10 5.3 22.3 N/A 40.7 1.7 Apneas & All Hypopneas Count 66 N/A 66 26 40 N/A 57 9 Index 9.9 N/A 10 5 23 N/A 41.5 1.7 Respiratory Events (Car Installations Supervisor+All Hyp+RERA) Count 66 N/A 66 26 40 N/A 57 9 Index 9.9 N/A 10 5.3 22.9 N/A 41.5 1.7 Respiratory Related Arousal Count 5 N/A 5 3 2 N/A 4 1 Index 0.7 N/A 1 1 1 N/A 3 0 Snoring Analysis Supine Right Left Prone REM NREM Total Snore duration 83.2 min Snores count N/A 2,486 664 N/A 683 2,467 3,150 Snore mean duration 1.6 Sec Snores index N/A 503 379 N/A 496.7 464.0 470.7 TST with snoring (%) 20.7% Desaturation Event Summary: Minimum %SpO2 Event Count Mean/Min/Max Duration(sec.) Desaturation Index % Time In Bed > 90 44 35.7 / 14.0 / 59.0 38.3 14.3 86 - 90 35 30.6 / 14.0 / 60.0 5.3 81.9 81 - 85 1 21.8 / 21.8 / 21.8 3.3 3.8 76 - 80 0 N/A 0.0 0.0 71 - 75 0 N/A 0.0 0.0 66 - 70 0 N/A 0.0 0.0 61 - 65 0 N/A 0.0 0.0 56 - 60 0 N/A 0.0 0.0 51 - 55 0 N/A 0.0 0.0 < 50 0 N/A 0.0 0.0 Total REM NREM Awake <50% 0.0 min. 0.0 min. 0.0 min. 0.0 min. 51 - 60% 0.0 min. 0.0 min. 0.0 min. 0.0 min. 61 - 70% 0.0 min. 0.0 min. 0.0 min. 0.0 min. 71 - 80% 0.0 min. 0.0 min. 0.0 min. 0.0 min. 81 - 90% 413.2 min. 66.6 min. 310.8 min. 35.8 min. 91 - 100% 69.0 min. 15.9 min. 8.2 min. 45.0 min. Average 89 88 88 91 Minimum SpO2 81 81 86 85 Desaturation Event Index 7.7 34.2 2.1 3.9 # Desat. Events below 89% 58 43 11 4 Time(%) with Saturation below 89% 52.5 10.0 41.1 1.4 Time(min.) with Saturation below 89% 253.1 48.1 198.3 6.7 Time (mins) REM (mins) NREM (mins) % of TST SpO2 Below 90% 57 46 N11 85.2 SpO2 Below 88% 31 0 0 30 Heart Rate Analysis Min (bpm) Max (bpm) Average (bpm) Awake 41 71 49 NREM 42 63 49 REM 41 74 50 Overall 41 74 49 Supplemental O2 Values Minimum O2 level: None Value Start Time End Time Owner Spa Director Comments Mr. Sanchez slept in the right, left and supine positions. PVC's and PAC's noted. Leg movements noted. No bruxism noted. Snoring was noted and scored as a 4 on a scale of 1 through 5. (0=no snoring, 5=snoring loud enough to be heard through a closed door or down the [address] way) Mr. Sanchez awoke to use the restroom 4 times during the night. Mr. Sanchez stated I did not sleep as well as I do when I am in my own bed. The final report will be interpreted and signed by a sleep physician. The completed physician report will then be placed in the patient medical record. Therapy (cm H2O) 0 TIB (min.) 493.0 TST (min.) 401.5 Sleep Onset (min.) 19.0 REM Onset From Sleep (min.) 137.0 Sleep Efficiency % 81 Wakefulness (%) 19 Wakefulness (min.) 91.5 NREM 1 (%) 5 NREM 1 (min.) 21.5 NREM 2 (%) 61 NREM 2 (min.) 245.0 NREM 3 (%) 13 NREM 3 (min.) 52.5 REM (%) 21 REM (min.) 82.5 # Arousals 100 Arousal Index 15 # Snore 3,150 Snore Index 470.7 AHI 9.9 AHI Supine N/A AHI Non-Supine 10 NREM AHI 1.7 REM AHI 41.5 RDI 9.9 # Obstructive Apnea 1 # Central Apnea 0 # Mixed Apnea 0 # Hypopneas 65 RERAs 0 Total Respiratory Events 67 Time Below SpO2 89% (min.) 246.4 Mean NREM SpO2 (%) 88 Mean REM SpO2 (%) 88 Mean Sleep SpO2 (%) 88 Min NREM SpO2 (%) 86 Min REM SpO2 (%) 81 Position Supine (min.) 2.2 Position Non-supine (min.) 401.5 LM Index Sleep 66.8 LM Index NREM 71.1 LM Index REM 50.2 Mean Heart Rate (bpm) 49 Min Heart Rate (bpm) 41
--- NOTE | 2016-12-23 08:43 | POLYSOMNOGRAPH REPORT ---
REFERRING PHYSICIAN: Dr. Eren Boyer. CLINICAL DATA: The patient is a 66-year-old male. He has a history of sleep apnea approximately 6 years ago. He tried CPAP but was not able to tolerate it. He does have a history of restless legs. The patient has daytime sleepiness. He has had recurring atrial fibrillation. The patient is referred for a sleep study in laboratory. His BMI is 30.85. SLEEP ARCHITECTURE: The total sleep period was 474.0 minutes. Total sleep time was 401.5 minutes. Sleep efficiency was 81%. The sleep onset latency was top normal at 19 minutes. REM latency was prolonged to 137 minutes. Wake after sleep onset was elevated at 72.5 minutes. Sleep consisted of stage N1 5%, stage N2 61%, stage N3 13%, stage REM 21%. AROUSAL DATA: The patient had a total of 100 arousals including 18 spontaneous arousals, 5 respiratory arousals, 50 PLM arousals, and 27 snoring arousals. The arousal index was 15. PLM DATA: The patient had a total of 447 periodic limb movements of sleep for an index of 66.8 events per hour. This would be severe. 51 of these were associated with arousals for a PLM arousal index of 7.6. RESPIRATORY DATA: The patient had a total of 66 respiratory events including 1 obstructive apnea and 65 hypopneas. The 4% hypopnea rule was utilized for scoring. The apnea hypopnea index is mildly elevated at 9.9 events per hour. This would be compatible with mild sleep apnea. The apnea duration was 17.9 seconds. The mean duration of the hypopneas was 20.7 seconds. OXIMETRY DATA: The average saturation for the night was 89%. The minimum saturation was 81%. The patient had a total of 253.1 minutes with saturations less than 89%. EKG: The underlying cardiac rhythm was sinus bradycardia. He did have PACs and PVCs. No definite atrial fibrillation was seen. The cardiac rates ranged from 41-74 beats per minute. GOVERNMENT RELATIONS MANAGER'S COMMENTS: Mr. Bonilla slept in the right, left, and supine positions. Leg movements were noted. No bruxism noted. Snoring was noted and scored as a 4 on a scale of 1 through 5. Mr. Bonilla awoke to use the restroom 4 times during the night. IMPRESSION: 1. Obstructive sleep apnea -- mild. 2. Periodic limb movement disorder with a history of restless legs. COMMENTS: The patient currently has mild sleep apnea. He does have frequent periodic limb movements, but with a mild number of arousals. His sleep apnea likely should be treated in light of his history of atrial fibrillation and coronary artery disease as comorbidities. He has hypoxemia through much of the night. In the past he had tried nasal CPAP but had difficulty. This would still be the treatment of choice if the patient would be agreeable to that. An alternative treatment if he refused nasal CPAP therapy would be treatment with an oral appliance if he were a candidate. This would depend upon the patient having a fairly good teeth structure of his own. RECOMMENDATIONS: 1. It is advised that the patient be given a trial of nasal CPAP. This could be done as a titration study in the sleep lab. If so, he would need to be referred back for that study. A split study could not be done with this first night study because he did not have sufficient apnea to qualify. An alternative would be treatment with auto CPAP. 2. A weight loss is advised in light of the patient's modest elevation of body mass index at 30.85. 3. It is suggested that he avoid sleeping in the supine position as one typically has more apnea in the supine position. During this study, his apnea hypopnea index supine was 10 and the apnea-hypopnea index nonsupine was only 1.7. 4. If the patient does not want nasal CPAP therapy, the alternative would be referral for an oral appliance. 5. If the patient does not want any definitive treatment for sleep apnea, an overnight pulse oximetry would be suggested as he likely is a candidate for nocturnal oxygen therapy. CALLUM
== END | disposition home or self-care (01) ==
LOC: C.NEUR 20:00
PROVIDERS: ATTEND Internal Medicine Cardiovascular Disease
DX: I25.10 Atherosclerotic heart disease of native coronary artery without angina pectoris (principal); I48.0 Paroxysmal atrial fibrillation; E78.5 Hyperlipidemia, unspecified; E78.2 Mixed hyperlipidemia; I21.4 Non-ST elevation (NSTEMI) myocardial infarction